=== PATIENT | male | born 1955 | race Caucasian/White ===

== ENCOUNTER 2018-12-17 18:06 | Emergency (ER) | payer BC ==
[2018-12-17 18:27] VITALS: RESP 18
[2018-12-17] MEDS ORDERED: PROPARACAINE 0.5% OPHTH DROPS 15 ML BTL LEFT EYE STA (18:43)
[2018-12-17] MEDS ORDERED: ERYTHROMYCIN 5 MG/GM OPHTH OINT 3.5 GM TUBE LEFT EYE STA (19:39)
[2018-12-17] MEDS ORDERED: DIPH,PERTUS(ACELL)TETVAC-LF 0.5 ML VIAL IM ONE (19:39)
--- NOTE | 2018-12-17 20:10 | ED ---
General Adult HPI - General Chief complaint: Eye Problems Stated complaint: foreign body lt eye Time Seen by Provider: 12/17/18 18:29 Source: patient, RN notes reviewed, old records reviewed Mode of arrival: ambulatory Limitations: no limitations - History of Present Illness Initial comments: 63-year-old male patient presents ED chief complaint foreign body sensation in left eye. Patient reports he felt as if something got in his eye approximately 9:00 possibly eyelash. Patient reports that he is rubbing vigorously, states that pain persisted and now there is a foreign body sensation. Patient states that he is not a contact lens user. Patient stated visual acuity is at baseline. Patient denies any previous eye issues, denies any other complaints. Systemic: Pt denies fatigue, fever/chills, rash. Pt denies weakness, night sweats, weight loss. Neuro: Pt denies headache, visual disturbances, syncope or pre-syncope. HEENT: Pt denies ocular discharge or irritation, otalgia, rhinorrhea, pharyngitis or notable lymphadenopathy. Cardiopulmonary: Pt denies chest pain, SOB, heart palpitations, dyspnea on exertion. Abdominal/GI: Pt denies abdominal pain, n/v/d. : Pt denies dysuria, burning w/ urination, frequency/urgency. Denies new onset urinary or bowel incontinence. MSK: Pt denies myalgia, loss of strength or function in extremities. Neuro: Pt denies new onset weakness, paresthesias. - Related Data Previous Rx's Medication Instructions Recorded Erythromycin Ophth Oint [Romycin 1 applic LEFT EYE QID 5 Days #1 12/17/18 Ophth Oint] tube Allergies Allergy/AdvReac Type Severity Reaction Status Date / Time lisinopril Allergy Rash/Hives Verified 12/17/18 18:24 Review of Systems ROS Statement: Those systems with pertinent positive or pertinent negative responses have been documented in the HPI. ROS Other: All systems not noted in ROS Statement are negative. Past Medical History Past Medical History: Hypertension History of Any Multi-Drug Resistant Organisms: None Reported Past Surgical History: Cholecystectomy, Orthopedic Surgery Past Psychological History: No Psychological Hx Reported Smoking Status: Current every day smoker Past Alcohol Use History: Occasional Past Drug Use History: None Reported General Exam - General Exam Comments Initial Comments: Constitutional: NAD, AOX3, Pt has pleasant affect. HEENT: NC/AT, trachea midline, neck supple, no lymphadenopathy. Posterior pharynx non erythematous, without exudates. External ears appear normal, without discharge. Mucous membranes moist. Eyes PERRLA, EOM intact. There is no scleral icterus. No pallor noted. Mild injection noted to left eye. Intraocular pressure average 20 bilaterally. Flourescence stain revealed Small corneal abrasion noted at 3:00, no foreign body noted. Cardiopulmonary: RRR, no murmurs, rubs or gallops, no JVD noted. Lungs CTAB in anterior and posterior german. No peripheral edema. Abdominal exam: Abdomen soft and non-distended. Abdomen non-tender to palpation in all 4 quadrants. Bowel sounds active in LLQ. No hepatosplenomegaly. No ecchymosis Neuro: CN II-XII grossly intact. No nuchal rigidity. No raccon eyes, no carvalho sign, no hemotympanum. No cervical spinal tenderness. MSK: No posterior calf tenderness bilaterally, homans sign negative bilaterally. Posterior tibialis and radial pulse +2 bilaterally. Sensation intact in upper and lower extremities. Full active ROM in upper and lower extremities, 5/5 stregnth. Limitations: no limitations Course Vital Signs 12/17/18 18:24 Temperature 98.1 F Pulse Rate 60 Respiratory 18 Rate Blood Pressure 153/87 O2 Sat by Pulse 97 Oximetry Medical Decision Making - Medical Decision Making 63-year-old male patient presents ED chief complaint foreign body sensation in left eye. Patient reports he felt as if something got in his eye approximately 9:00 possibly eyelash. Patient reports that he is rubbing vigorously, states that pain persisted and now there is a foreign body sensation. Patient states that he is not a contact lens user. Patient stated visual acuity is at baseline. Patient denies any previous eye issues, denies any other complaints. Pt VSS, afebrile. Physical exam displayed: Mild injection noted to left eye. Intraocular pressure average 20 bilaterally. Flourescence stain revealed Small corneal abrasion noted at 3:00, no foreign body noted. Patient tetanus up-to-date. Patient started on erythromycin ointment, will have ophthalmology follow-up tomorrow. Return precautions discussed. Case discussed with Dr. Boggs. Disposition Clinical Impression: Corneal abrasion, left Disposition: HOME SELF-CARE Condition: Stable Instructions (If sedation given, give patient instructions): Corneal Abrasion (ED) Additional Instructions: Patient to adhere to previously discussed treatment plan and will take medication(s) as directed. Patient to follow up with PCP in 1-2 days. Patient to return to ED if symptoms do not improve. Medications as directed. Follow-up with public health director tomorrow. Return to ER if condition worsens. Prescriptions: Erythromycin Ophth Oint [Romycin Ophth Oint] 1 applic LEFT EYE QID 5 Days #1 tube Is patient prescribed a controlled substance at d/c from ED?: No Referrals: Rigo Estevez DO [Primary Care Provider] - 1-2 days Guanako Peterson MD [STAFF PHYSICIAN] - 1-2 days
[2018-12-17 20:29] VITALS: BP 170/82; PULSE 58; TEMP 97.9
== END 2018-12-17 20:27 | disposition home or self-care (01) ==
LOC: EC 18:06
DX: S05.02XA Injury of conjunctiva and corneal abrasion without foreign body, left eye, initial encounter (principal); F17.200 Nicotine dependence, unspecified, uncomplicated; Z88.8 Allergy status to other drugs, medicaments and biological substances
CPT/HCPCS: 99283